=== PATIENT | female | born 1980 ===

== ENCOUNTER → 2020-10-28 | Outpatient (CLI) | payer OTHER | END | disposition home or self-care (01) | LOC: PRENATAL 13:21 | PROVIDERS: ATTEND Obstetrics & Gynecology Maternal & Fetal Medicine | DX: O35.0XX1 Maternal care for (suspected) central nervous system malformation in fetus, fetus 1 (principal); O35.3XX1 Maternal care for (suspected) damage to fetus from viral disease in mother, fetus 1; O98.512 Other viral diseases complicating pregnancy, second trimester; Z36.89 Encounter for other specified antenatal screening; Z3A.20 20 weeks gestation of pregnancy ==

== ENCOUNTER 2020-12-11 13:49 | Outpatient (CLI) | payer OTHER | END 2020-12-11 17:33 | disposition home or self-care (01) | LOC: OBS/DEL 13:49 | PROVIDERS: ATTEND Obstetrics & Gynecology | DX: O26.852 Spotting complicating pregnancy, second trimester (principal); O26.842 Uterine size-date discrepancy, second trimester; O60.02 Preterm labor without delivery, second trimester; Z3A.26 26 weeks gestation of pregnancy ==

== ENCOUNTER → 2021-01-15 | Outpatient (CLI) | payer OTHER | END | disposition home or self-care (01) | LOC: PRENATAL 13:41 | PROVIDERS: ATTEND Obstetrics & Gynecology Maternal & Fetal Medicine | DX: O26.843 Uterine size-date discrepancy, third trimester (principal); O24.410 Gestational diabetes mellitus in pregnancy, diet controlled; O09.513 Supervision of elderly primigravida, third trimester; Z36.89 Encounter for other specified antenatal screening; Z3A.32 32 weeks gestation of pregnancy ==

== ENCOUNTER 2021-01-23 07:15 | Outpatient (CLI) | payer OTHER | END 2021-01-23 07:30 | disposition home or self-care (01) | LOC: MAMO-SONO 07:15 → SONOGRAMA 07:15 | PROVIDERS: ATTEND Obstetrics & Gynecology | DX: R10.11 Right upper quadrant pain (principal) ==

== ENCOUNTER 2021-02-12 12:00 | Inpatient (IN) | payer OTHER ==
[~2021-02-12] VITALS: Ht 157.5 cm; Wt 78.9 kg
[2021-02-15] MEDS ORDERED: PRENATAL TABLE1 EAC1 PO (12:30)
[2021-02-15] MEDS ORDERED: PREVACID15 MG PO (12:30)
[2021-02-19] MEDS ORDERED: COLACE100 MG PO (08:05)
[2021-02-19] MEDS ORDERED: IBU800 MG PO (08:05)
[2021-02-19] MEDS ORDERED: SIMETHICONE125 M1 PO (08:07)
== END 2021-02-19 16:13 | disposition home or self-care (01) | DRG 788 ==
LOC: SURG-SUITE 02-15 12:00 → LDR 02-15 12:00 → SURG-SUITE 02-15 18:13 → OB/GYN 03-10 12:00
PROVIDERS: ADMIT Obstetrics & Gynecology; ATTEND Obstetrics & Gynecology
PROC: 4A1HXFZ Monitoring of Products of Conception, Cardiac Rhythm, External Approach (ICD-10-PCS; 2021-02-15)
PROC: 10D00Z1 Extraction of Products of Conception, Low, Open Approach (ICD-10-PCS; principal; 2021-02-15 14:00)
DX: O64.1XX0 Obstructed labor due to breech presentation, not applicable or unspecified (principal); O42.013 Preterm premature rupture of membranes, onset of labor within 24 hours of rupture, third trimester; O24.420 Gestational diabetes mellitus in childbirth, diet controlled; Z3A.35 35 weeks gestation of pregnancy; Z37.0 Single live birth; Z20.822 Contact with and (suspected) exposure to COVID-19

== ENCOUNTER 2022-03-03 08:47 | Outpatient (CLI) | payer OTHER ==
[~2022-03-03 08:47] MED LIST: COLACE100 MG PO; IBU800 MG PO; PRENATAL TABLE1 EAC1 PO; PREVACID15 MG PO; SIMETHICONE125 M1 PO
== END 2022-03-03 08:48 | disposition home or self-care (01) ==
LOC: SONOGRAMA 08:47
PROVIDERS: ATTEND Obstetrics & Gynecology
DX: N84.0 Polyp of corpus uteri (principal)

== ENCOUNTER 2022-08-19 14:00 | Outpatient (CLI) | payer OTHER | END 2022-08-19 15:25 | disposition home or self-care (01) | LOC: PRENATAL 14:00 | PROVIDERS: ATTEND Obstetrics & Gynecology Maternal & Fetal Medicine | DX: O36.80X0 Pregnancy with inconclusive fetal viability, not applicable or unspecified (principal); Z36 Encounter for antenatal screening of mother; O34.219 Maternal care for unspecified type scar from previous cesarean delivery; O09.819 Supervision of pregnancy resulting from assisted reproductive technology, unspecified trimester; O26.859 Spotting complicating pregnancy, unspecified trimester ==

== ENCOUNTER 2022-10-19 08:02 | Outpatient (CLI) | payer OTHER | END 2022-10-19 09:26 | disposition home or self-care (01) | LOC: PRENATAL 08:02 | PROVIDERS: ATTEND Obstetrics & Gynecology Maternal & Fetal Medicine | DX: O35.9XX0 Maternal care for (suspected) fetal abnormality and damage, unspecified, not applicable or unspecified (principal); O09.819 Supervision of pregnancy resulting from assisted reproductive technology, unspecified trimester; O35.3XX0 Maternal care for (suspected) damage to fetus from viral disease in mother, not applicable or unspecified; O34.219 Maternal care for unspecified type scar from previous cesarean delivery; O09.219 Supervision of pregnancy with history of pre-term labor, unspecified trimester; Z3A.20 20 weeks gestation of pregnancy ==

== ENCOUNTER 2022-11-03 08:27 | Inpatient (IN) | payer OTHER ==
[~2022-11-03] VITALS: Ht 157.5 cm; Wt 65.8 kg
[2022-11-04] MEDS ORDERED: PROGESTERONE200 MG (08:05)
[2022-11-05] MEDS ORDERED: PROGESTERONE200 MG VAG (15:59)
== END 2022-11-04 14:41 | disposition home or self-care (01) | DRG 831 ==
LOC: OBS/DEL 08:27 → LDR 11:10
PROVIDERS: ADMIT Obstetrics & Gynecology; ATTEND Obstetrics & Gynecology
PROC: 4A1HXCZ Monitoring of Products of Conception, Cardiac Rate, External Approach (ICD-10-PCS; principal; 2022-11-03)
PROC: BY4CZZZ Ultrasonography of Second Trimester, Single Fetus (ICD-10-PCS; 2022-11-03)
PROC: BU4CZZZ Ultrasonography of Uterus and Ovaries (ICD-10-PCS; 2022-11-03)
DX: O26.872 Cervical shortening, second trimester (principal); O60.02 Preterm labor without delivery, second trimester; O26.842 Uterine size-date discrepancy, second trimester; O26.892 Other specified pregnancy related conditions, second trimester; R10.2 Pelvic and perineal pain; O43.92 Unspecified placental disorder, second trimester; Z3A.22 22 weeks gestation of pregnancy

== ENCOUNTER 2022-11-14 02:14 | Outpatient (CLI) | payer OTHER ==
[~2022-11-14 02:14] MED LIST changes: +PROGESTERONE200 MG; +PROGESTERONE200 MG VAG
== END 2022-11-14 12:54 | disposition home or self-care (01) ==
LOC: OBS/DEL 02:14
PROVIDERS: ATTEND Obstetrics & Gynecology
DX: O26.872 Cervical shortening, second trimester (principal); R19.7 Diarrhea, unspecified; E86.0 Dehydration; Z3A.24 24 weeks gestation of pregnancy

== ENCOUNTER 2022-11-16 12:40 | Outpatient (CLI) | payer OTHER | END 2022-11-16 13:45 | disposition home or self-care (01) | LOC: PRENATAL 12:40 | PROVIDERS: ATTEND Obstetrics & Gynecology Maternal & Fetal Medicine | DX: O26.849 Uterine size-date discrepancy, unspecified trimester (principal); O26.879 Cervical shortening, unspecified trimester; O60.00 Preterm labor without delivery, unspecified trimester; Z3A.24 24 weeks gestation of pregnancy ==

== ENCOUNTER 2023-01-03 20:13 | Outpatient (CLI) | payer OTHER ==
[2023-01-03] MEDS ORDERED: TYLENOL325 MG (22:36)
== END 2023-01-04 14:25 | disposition home or self-care (01) ==
LOC: OBS/DEL 20:13
PROVIDERS: ATTEND Obstetrics & Gynecology
DX: O98.813 Other maternal infectious and parasitic diseases complicating pregnancy, third trimester (principal); O09.523 Supervision of elderly multigravida, third trimester; O47.03 False labor before 37 completed weeks of gestation, third trimester; O09.213 Supervision of pregnancy with history of pre-term labor, third trimester; Z3A.31 31 weeks gestation of pregnancy; Z20.822 Contact with and (suspected) exposure to COVID-19

== ENCOUNTER 2023-01-06 11:57 | Outpatient (CLI) | payer OTHER ==
[~2023-01-06 11:57] MED LIST changes: +TYLENOL325 MG
[2023-01-06] MEDS ORDERED: CLOTRIMAZOLE45 G1 (12:23)
[2023-01-06] MEDS ORDERED: FLAGYL375 MG PO (12:24)
== END 2023-01-06 17:32 | disposition home or self-care (01) ==
LOC: OBS/DEL 11:57
PROVIDERS: ATTEND Obstetrics & Gynecology
DX: O26.893 Other specified pregnancy related conditions, third trimester (principal); K52.89 Other specified noninfective gastroenteritis and colitis; T37.8X5A Adverse effect of other specified systemic anti-infectives and antiparasitics, initial encounter; Z3A.31 31 weeks gestation of pregnancy

== ENCOUNTER 2023-01-19 02:18 | Outpatient (CLI) | payer OTHER ==
[~2023-01-19] VITALS: Ht 157.5 cm; Wt 72.6 kg
[~2023-01-19 02:18] MED LIST changes: +CLOTRIMAZOLE45 G1; +FLAGYL375 MG PO
[2023-01-19] MEDS ORDERED: PROMETRIUM200 MG PO (02:42)
== END 2023-01-19 10:33 | disposition home or self-care (01) ==
LOC: OBS/DEL 02:18
PROVIDERS: ATTEND Obstetrics & Gynecology
DX: O26.893 Other specified pregnancy related conditions, third trimester (principal); R10.2 Pelvic and perineal pain; Z3A.33 33 weeks gestation of pregnancy

== ENCOUNTER 2023-01-24 15:22 | Outpatient (CLI) | payer OTHER ==
[~2023-01-24 15:22] MED LIST changes: +PROMETRIUM200 MG PO
== END 2023-01-25 17:02 | disposition home or self-care (01) ==
LOC: OBS/DEL 15:22
PROVIDERS: ATTEND Obstetrics & Gynecology
DX: O47.03 False labor before 37 completed weeks of gestation, third trimester (principal); Z3A.34 34 weeks gestation of pregnancy; Z20.822 Contact with and (suspected) exposure to COVID-19

== ENCOUNTER 2023-01-29 20:53 | Outpatient (CLI) | payer OTHER | END 2023-01-30 11:20 | disposition home or self-care (01) | LOC: OBS/DEL 20:53 | PROVIDERS: ATTEND Obstetrics & Gynecology | DX: O09.523 Supervision of elderly multigravida, third trimester (principal); Z3A.35 35 weeks gestation of pregnancy ==

== ENCOUNTER 2023-02-04 23:06 | Outpatient (CLI) | payer OTHER ==
[2023-02-04] MEDS ORDERED: CHILDREN'S ASPI81 MG (23:09)
== END 2023-02-06 15:16 | disposition home or self-care (01) ==
LOC: OBS/DEL 23:06
PROVIDERS: ATTEND Obstetrics & Gynecology
DX: O26.893 Other specified pregnancy related conditions, third trimester (principal); Z3A.36 36 weeks gestation of pregnancy; N89.8 Other specified noninflammatory disorders of vagina

== ENCOUNTER 2023-02-15 17:32 | Inpatient (IN) | payer OTHER ==
[~2023-02-15] VITALS: Ht 157.5 cm; Wt 77.1 kg
[~2023-02-15 17:32] MED LIST changes: +CHILDREN'S ASPI81 MG
[2023-02-16] MEDS ORDERED: PROGESTERONE200 MG (09:41)
[2023-02-16] MEDS ORDERED: HYDROXYZINE PAM50 MG (09:41)
== END 2023-02-18 13:57 | disposition home or self-care (01) | DRG 785 ==
LOC: LDR 17:32 → OB/GYN 17:32 → O/R 20:51 → OB/GYN 21:50
PROVIDERS: Obstetrics & Gynecology; ADMIT Obstetrics & Gynecology; ATTEND Obstetrics & Gynecology
PROC: 0UB70ZZ Excision of Bilateral Fallopian Tubes, Open Approach (ICD-10-PCS; 2023-02-15)
PROC: 4A1HXCZ Monitoring of Products of Conception, Cardiac Rate, External Approach (ICD-10-PCS; 2023-02-15)
PROC: 10D00Z1 Extraction of Products of Conception, Low, Open Approach (ICD-10-PCS; principal; 2023-02-15 19:00)
DX: O34.211 Maternal care for low transverse scar from previous cesarean delivery (principal); Z3A.37 37 weeks gestation of pregnancy; Z37.0 Single live birth; Z20.822 Contact with and (suspected) exposure to COVID-19; Z30.2 Encounter for sterilization